=== PATIENT | female | born 1980 | race Caucasian/White ===

== ENCOUNTER → 2018-06-20 | Outpatient (CLI) | payer BC | LOC: FIMAGING 09:19 | PROVIDERS: ATTEND Obstetrics & Gynecology | DX: O09.522 Supervision of elderly multigravida, second trimester (principal); Z3A.15 15 weeks gestation of pregnancy | CPT/HCPCS: 82106-90; 88291-90 ==

== ENCOUNTER → 2018-08-27 | Outpatient (CLI) | payer BC | LOC: FIMAGING 09:24 | PROVIDERS: ATTEND Obstetrics & Gynecology | DX: O09.522 Supervision of elderly multigravida, second trimester (principal); O34.219 Maternal care for unspecified type scar from previous cesarean delivery; Z3A.25 25 weeks gestation of pregnancy ==

== ENCOUNTER → 2018-10-15 | Outpatient (CLI) | payer BC | LOC: FIMAGING 13:46 | PROVIDERS: ATTEND Obstetrics & Gynecology | DX: O09.523 Supervision of elderly multigravida, third trimester (principal); O09.293 Supervision of pregnancy with other poor reproductive or obstetric history, third trimester; Z3A.32 32 weeks gestation of pregnancy ==